=== PATIENT | female | born 1940 | race Caucasian/White ===

== ENCOUNTER 2016-10-15 14:05 | Emergency (ER) | payer OTHER, SELFPAY ==
--- NOTE | 2016-10-15 14:38 | C.PDOC ---
History Of Present Illness Patient is a 76 y/o female, whose past medical history includes asthma, and osteoporosis, presents to the emergency department for evaluation of epigastric and right sided abdominal pain for the last 4 days. Patient states pain is "worse when she walks" and has no pain at rest. Patient also reports that she has a history of abdominal hernia for "many many years". Otherwise, denies any fever, chills, n/v/d, or urinary symptoms. pt states she is able to pass gas/ stool Time Seen by Provider: 10/15/16 14:14 Chief Complaint (Nursing): Abdominal Pain History Per: Patient History/Exam Limitations: no limitations Onset/Duration Of Symptoms: Days (4) Current Symptoms Are (Timing): Still Present Location Of Pain/Discomfort: Epigastric Radiation Of Pain To:: None Quality Of Discomfort: "Pain" Associated Symptoms: denies: Fever, Chills, Nausea, Vomiting, Diarrhea, Loss Of Appetite, Back Pain, Chest Pain, Constipation, Urinary Symptoms Exacerbating Factors: None Alleviating Factors: None Recent travel outside of the [place]: No Additional History Per: Patient Abnormal Vaginal Bleeding: No Past Medical History Reviewed: Historical Data, Nursing Documentation, Vital Signs Vital Signs: Last Vital Signs Temp 97.6 F 10/15/16 17:18 Pulse 69 10/15/16 17:18 Resp 18 10/15/16 17:18 BP 132/82 10/15/16 17:18 Pulse Ox 95 10/15/16 17:18 - Medical History PMH: Asthma, Gastritis, Hypercholesterolemia Family History: States: Unknown Family Hx - Social History Hx Alcohol Use: No Hx Substance Use: No - Immunization History Hx Tetanus Toxoid Vaccination: Yes Hx Influenza Vaccination: No Hx Pneumococcal Vaccination: Yes Review Of Systems Except As Marked, All Systems Reviewed And Found Negative. Constitutional: Negative for: Fever, Chills Gastrointestinal: Positive for: Abdominal Pain. Negative for: Nausea, Vomiting , Diarrhea, Constipation Genitourinary: Negative for: Dysuria, Frequency, Incontinence, Hematuria Musculoskeletal: Negative for: Back Pain Skin: Negative for: Rash Physical Exam - Physical Exam Appears: Non-toxic, No Acute Distress Skin: Normal Color, Warm, Dry Head: Atraumatic, Normacephalic Eye(s): bilateral: Normal Inspection Neck: Normal ROM, Supple Chest: Symmetrical Cardiovascular: Rhythm Regular, No Murmur Respiratory: Normal Breath Sounds, No Rales, No Rhonchi, No Wheezing Gastrointestinal/Abdominal: Soft, Tenderness (epigastric), No Guarding, No Rebound, Hernia (large soft hernia to lower part of abdomen) Extremity: Normal ROM Neurological/Psych: Oriented x3, Normal Speech, Normal Cognition ED Course And Treatment - Laboratory Results Result Diagrams: 10/15/16 14:53 10/15/16 14:53 O2 Sat by Pulse Oximetry: 96 (on RA) Pulse Ox Interpretation: Normal Progress Note: Blood work, urinalysis, EKG, CXR ordered and reviewed. Patient was treated with Pantoprazole. Medical Decision Making Medical Decision Making: r/o obstruction, gastritis, colitis- labs imaging pending 400:noted humerusfx on cxr- pt states she has old fx "a long time ago",. ekg nsr [address] t wave changes 500: noted mildly elevated lipase, <3x upper limit. pt abd soft no ttp. patient states she is pain free. vitals wnl. ct shows no obstruction, no e/o of pancreatitis, gallbladder pathology, and chronic hernia. pt states she feels well to go home. ambulatory without any distress. no leukocystosis. pt given strict return precautions. pt and daughter bedside verbalize understanding and agree to return immediately with any worsening Disposition - Disposition Referrals: Pierre Sandoval MD [Staff Provider] - Jan Patten MD [Staff Provider] - Disposition: HOME/ ROUTINE Disposition Time: 17:10 Condition: STABLE Additional Instructions: please follow up with your doctor/specialist. return to er with worsening s ymptoms or concerns. Prescriptions: Famotidine [Pepcid] 20 mg PO DAILY #20 tab Instructions: Acute Abdominal Pain (ED) - Clinical Impression Clinical Impression: Abdominal pain - Scribe Statement The provider has reviewed the documentation as recorded by the Aliseibhima Faulkner All medical record entries made by the Scribe were at my direction and personally dictated by me. I have reviewed the chart and agree that the record accurately reflects my personal performance of the history, physical exam, medical decision making, and the department course for this patient. I have also personally directed, reviewed, and agree with the discharge instructions and disposition.
[2016-10-15 14:58] LABS: BASO % 0.6 % (0.0-2.0); EOS # 0.2 K/uL (0.0-0.7); EOS % 3.2 % (0.0-4.0); HEMOGLOBIN 11.1 g/dL (11.0-16.0); LYMPH # 2.3 K/uL (1.0-4.3); LYMPH % 35.5 % (20.0-40.0); MEAN CELL VOLUME 90.7 fL (81.0-99.0); MEAN CORPUSCULAR HEMOGLOBIN 30.1 pg (27.0-31.0); MEAN CORPUSCULAR HGB CONC 33.2 g/dL (33.0-37.0); MEAN PLATELET VOLUME 8.9 fL (7.2-11.7); MONO # 0.4 K/uL (0.0-0.8); MONO % 6.6 % (0.0-10.0); NEUT # 3.5 K/uL (1.8-7.0); NEUT % 54.1 % (50.0-75.0); RBC 3.69 Mil/uL (3.80-5.20); RED CELL DISTRIBUTION WIDTH 14.2 % (11.5-14.5); WHITE BLOOD COUNT 6.4 K/uL (4.8-10.8)
[2016-10-15 15:06] LABS: PROTHROMBIN TIME 11.5 SECONDS (9.7-12.2)
[2016-10-15 15:08] LABS: ALBUMIN 3.6 g/dL (3.5-5.0)
[2016-10-15 15:11] LABS: ALB/GLOB RATIO 1.1 (1.0-2.1); AST/SGOT 25 U/L (14-36); BLOOD UREA NITROGEN 13 mg/dL (7-17); GFR AFRICAN-AMERICAN > 60; GFR NON-AFRICAN AMERICAN > 60
[2016-10-15 15:12] LABS: ALT/SGPT 27 U/L (9-52); CALCIUM 8.3 mg/dl (8.6-10.4); LIPASE 401 U/L (23-300)
--- NOTE | 2016-10-15 15:36 | RAD ---
HISTORY: Abdominal pain COMPARISON: No prior. FINDINGS: LUNGS: Mild venous congestion. Patchy increased markings at the left lung base with trace left pleural effusion. Right hilar prominence. PLEURA: As above. CARDIOVASCULAR: Tortuous aorta. OSSEOUS STRUCTURES: Deformity of the right proximal humerus. VISUALIZED UPPER ABDOMEN: Normal. OTHER FINDINGS: None. IMPRESSION: Mild venous congestion. Patchy increased markings at the left lung base with trace left pleural effusion. Right hilar prominence. Deformity of the right proximal humerus.
[2016-10-15 16:03] LABS: SQUAMOUS EPITHIAL < 1 /hpf (0-5); URINE BILIRUBIN NEGATIVE (NEGATIVE); URINE BLOOD NEGATIVE (NEGATIVE); URINE CLARITY Clear (Clear); URINE COLOR Yellow (YELLOW); URINE GLUCOSE (UA) NORMAL (Normal); URINE LEUKOCYTE ESTERASE NEG Leu/uL (Negative); URINE NITRATE NEGATIVE (NEGATIVE); URINE PROTEIN NEGATIVE (NEGATIVE); URINE UROBILINOGEN NORMAL mg/dL (0.2-1.0)
[2016-10-15] MEDS ORDERED: Iodixanol 320 mg/ml 150 ml Bottle IV ONE (16:07)
[2016-10-15] MEDS ORDERED: Sodium Chloride 0.9% 1,000 ML IV ONE (16:17)
[2016-10-15] MEDS ORDERED: Sodium Chloride 0.9% 1,000 ML ONE (16:23)
--- NOTE | 2016-10-15 17:04 | CT ---
PROCEDURE: CT Abdomen and Pelvis with contrast HISTORY: epigastric / right sided pain COMPARISON: None. TECHNIQUE: Contrast dose: 100 mL visipaque Radiation dose: Total exam DLP = 207 mGy-cm. This CT exam was performed using one or more of the following dose reduction techniques: Automated exposure control, adjustment of the mA and/or kV according to patient size, and/or use of iterative reconstruction technique. FINDINGS: LOWER THORAX: Trace inferolateral bibasilar pleural thickening LIVER: Unremarkable. No gross lesion or ductal dilatation. GALLBLADDER AND BILE DUCTS: Nondistended gallbladder. No dilated ducts PANCREAS: Unremarkable. No gross lesion or ductal dilatation. SPLEEN: Unremarkable. ADRENALS: Unremarkable. No mass. KIDNEYS AND URETERS: Right upper renal pole 2 cm cyst. No hydronephrosis. No solid mass. VASCULATURE: Unremarkable. No aortic aneurysm. BOWEL: . No obstruction. No gross mural thickening. Ventrolateral small bowel containing hernia and large amount of fat. No associated bowel obstruction. This begins at the approximate left superior hip joint level inferior to this is a right groin hernia containing small bowel loops - -no associated destruction here either APPENDIX: Not visualized. No pericecal inflammatory changes PERITONEUM: Unremarkable. No free fluid. No free air. LYMPH NODES: Unremarkable. No enlarged lymph nodes. BLADDER: Unremarkable. REPRODUCTIVE: Unremarkable. BONES: Multiple mild moderate compression deformities without gross retropulsion of ossific fragments into the spinal canal T12 and L1 most notable OTHER FINDINGS: Distended stomach mottled material no mechanical obstruction. No gross antral or duodenal mural thickening seen. Delayed gastric emptying-possible IMPRESSION: Lateral small bowel containing hernia is. No associated obstruction. Distended stomach with mottled food inferred contents. Distal obstruction or stricture. Possible delayed gastric emptying. Correlate clinically Redundant colon. No diverticulitis seen. Appendix not visualized. No pericecal inflammatory changes 2 cm right upper renal pole cyst. Multiple compression vertebral body deformities as above -probably chronic -no retropulsed ossific fragments into the canal suggested
[2016-10-15 17:19] VITALS: BP 132/82; PULSE 69; RESP 18; TEMP 97.6
[2016-10-16 00:01] VITALS: O2SAT 96
--- NOTE | 2016-10-16 12:14 | CARD ---
APPROVED REPORT EKG Measurement Heart [id number] <Conclusion> Normal sinus rhythm Normal ECG
== END 2016-10-15 17:28 | disposition home or self-care (01) ==
LOC: C.ER 14:05
DX: R10.13 Epigastric pain (principal)
CPT/HCPCS: 71010; 74177; 80053; 81001; 83690; 84484; 85025; 85610; 85730; 93005; 96361; 96374; 99285; C9113; J7040; Q9965

== ENCOUNTER 2017-12-11 10:59 | Inpatient (IN) | payer MEDICAID, OTHER ==
[2017-12-11] MEDS ORDERED: Sodium Chloride 0.9% 500 ML IV ONE (11:31)
[2017-12-11] MEDS ORDERED: Sodium Chloride 0.9% 1,000 ML ONE ×2 (11:50→18:32)
[2017-12-11] MEDS ORDERED: Iohexol 240 (50 ml) PO STA (11:50)
--- NOTE | 2017-12-11 11:51 | C.PDOC ---
History Of Present Illness 77 y/o female with history of bilateral hernias (she states worse on left) presents to ED with c/o bilateral lower quadrant abdominal pain (R>>L) for months and worsening for several days. Patient admits to nausea. She denies fever/chills, dysuria, hematuria, diarrhea, vomiting, fever. Time Seen by Provider: 12/11/17 11:06 Chief Complaint (Nursing): Abdominal Pain History Per: Patient History/Exam Limitations: no limitations Onset/Duration Of Symptoms: Days Current Symptoms Are (Timing): Still Present Severity: Moderate Location Of Pain/Discomfort: RLQ, LLQ Quality Of Discomfort: "Pain" Associated Symptoms: Nausea. denies: Vomiting Past Medical History Reviewed: Historical Data, Nursing Documentation, Vital Signs Vital Signs: Last Vital Signs Temp 98.7 F 12/11/17 18:23 Pulse 92 H 12/11/17 18:23 Resp 16 12/11/17 18:23 BP 167/91 H 12/11/17 18:23 Pulse Ox 95 12/11/17 18:23 - Medical History PMH: Asthma, Gastritis, Hypercholesterolemia, Osteoporosis Surgical History: No Surg Hx Family History: States: No Known Family Hx - Social History Hx Alcohol Use: No Hx Substance Use: No - Immunization History Hx Tetanus Toxoid Vaccination: Yes Hx Influenza Vaccination: No Hx Pneumococcal Vaccination: Yes Review Of Systems Constitutional: Negative for: Fever, Chills Gastrointestinal: Positive for: Nausea, Abdominal Pain. Negative for: Vomiting , Diarrhea Genitourinary: Negative for: Dysuria, Hematuria Musculoskeletal: Negative for: Back Pain Skin: Negative for: Rash Physical Exam - Physical Exam Appears: Well, Non-toxic, Other (In moderate pain) Skin: Warm, Dry, No Rash Head: Normacephalic Eye(s): bilateral: Normal Inspection Oral Mucosa: Moist Neck: Supple Cardiovascular: Rhythm Regular Respiratory: Normal Breath Sounds, No Rales, No Rhonchi, No Wheezing Gastrointestinal/Abdominal: Soft, Tenderness ((+) B/L lower quadrant TTP, large pannus, right inguinal hernia partially reducable but TTP, left ventral hernia, hard to tough, (+) TTP), No Guarding, No Hernia, Other (obese abdomen) Back: Normal Inspection, No CVA Tenderness Neurological/Psych: Oriented x3, Normal Speech, Normal Cognition ED Course And Treatment - Laboratory Results Result Diagrams: 12/11/17 12:05 12/11/17 12:05 ECG: Interpreted By Me, Viewed By Me (NSR 85 bpm, left axis deviation, no acute ST/T wave changes) O2 Sat by Pulse Oximetry: 97 (RA) Pulse Ox Interpretation: Normal - CT Scan/US ct abd/pelvis Other Rad Studies (CT/US): Read By Radiologist, Radiology Report Reviewed CT/US Interpretation: Accession No. : [id number]. Patient Name / ID : LETICIA ROBERTSON / [id number]. Exam Date : 12/11/2017 14:34:27 ( Approved ). Study Comment : Sex / Age : F / 77Y. Creator : Tatiana Iqbal. Dictator : Bia Resendez MD. Utility Plant Operative : Curb Setter : Bia Resendez MD. Approver2 : Report Date : 12/11/2017 14:49:12. My Comment : . PROCEDURE: CT Abdomen and Pelvis with oral and IV contrast. HISTORY: llq pain, r/o diverticulitis vs hernia. COMPARISON: CT abdomen and pelvis performed . TECHNIQUE: Contiguous axial images of the abdomen and pelvis. Oral and IV contrast was administered. Coronal and Sagittal reformats generated and reviewed. Contrast dose: 100 mL Visipaque IV. Radiation dose: Total exam DLP = 237.99 mGy-cm. This CT exam was performed using one or more of the following dose reduction techniques: Automated exposure control, adjustment of the mA and/ or kV according to patient size, and/or use of iterative reconstruction technique. FINDINGS: LOWER THORAX: No visible consolidation, pleural effusion , or pneumothorax. LIVER: Unremarkable. GALLBLADDER AND BILE DUCTS: Unremarkable. PANCREAS: Unremarkable. SPLEEN: Unremarkable. ADRENALS: Unremarkable. KIDNEYS AND URETERS: The kidneys enhance symmetrically. No hydronephrosis or obstructing renal calculus. 14 mm right upper pole cyst. BLADDER: The urinary bladder appears unremarkable. REPRODUCTIVE: Uterus is absent, consistent with hysterectomy. APPENDIX: The appendix appears within normal limits of caliber. No secondary signs of acute appendicitis. BOWEL: The stomach is nondistended. Large right bowel containing inguinal hernia without evidence of obstruction. Please note the appendix also enters into the hernia sac. Large left ventral lateral bowel containing hernia without evidence of obstruction. PERITONEUM: No significant free fluid. No definite free air. LYMPH NODES: No bulky lymphadenopathy identified. VASCULATURE: No aortic aneurysm. BONES: Osseous demineralization. Multilevel degenerative changes. Multilevel chronic compression fracture deformities. OTHER FINDINGS: None. IMPRESSION: Large right bowel containing inguinal hernia without evidence of obstruction. Please note the appendix also enters into the hernia sac. Large left ventral lateral bowel containing hernia without evidence of obstruction. Additional findings as above. Progress Note: Blood work, UA, CT scan abd/pelvis ordered and reviewed. Patient given IV NS bolus, IV morphine. 3:25pm- Discussed patient with surgery team, they recommend medicine admission with surgery clinic. Disposition - Disposition Disposition: HOSPITALIZED - Scribe Statement The provider has reviewed the documentation as recorded by the [facility] All medical record entries made by the [facility] were at my direction and personally dictated by me. I have reviewed the chart and agree that the record accurately reflects my personal performance of the history, physical exam, medical decision making, and the department course for this patient. I have also personally directed, reviewed, and agree with the discharge instructions and disposition.
[2017-12-11 12:10] LABS: BASO % 0.5 % (0.0-2.0); EOS # 0.1 K/uL (0.0-0.7); LYMPH # 1.3 K/uL (1.0-4.3); LYMPH % 12.9 % (20.0-40.0); MEAN CORPUSCULAR HEMOGLOBIN 31.6 pg (27.0-31.0); MEAN CORPUSCULAR HGB CONC 33.3 g/dL (33.0-37.0); MEAN PLATELET VOLUME 9.2 fL (7.2-11.7); MONO # 0.7 K/uL (0.0-0.8); MONO % 7.1 % (0.0-10.0); NEUT # 7.6 K/uL (1.8-7.0); NEUT % 78.5 % (50.0-75.0); RBC 4.13 Mil/uL (3.80-5.20)
[2017-12-11 12:11] LABS: HEMOGLOBIN 13.1 g/dL (11.0-16.0); MEAN CELL VOLUME 95.1 fL (81.0-99.0); WHITE BLOOD COUNT 9.7 K/uL (4.8-10.8)
[2017-12-11] MEDS ORDERED: Iohexol 240 (50 ml) ONE (12:18)
[2017-12-11 12:23] LABS: ALB/GLOB RATIO 1.3 (1.0-2.1); ALBUMIN 4.3 g/dL (3.5-5.0); ALT/SGPT 35 U/L (9-52); AST/SGOT 27 U/L (14-36); BLOOD UREA NITROGEN 12 mg/dL (7-17); CALCIUM 9.1 mg/dl (8.6-10.4); GFR NON-AFRICAN AMERICAN > 60; LIPASE 175 U/L (23-300)
[2017-12-11 12:32] LABS: SQUAMOUS EPITHIAL 7 /hpf (0-5); URINE BILIRUBIN NEGATIVE (NEGATIVE); URINE BLOOD NEGATIVE (NEGATIVE); URINE CLARITY Clear (Clear); URINE COLOR Yellow (YELLOW); URINE GLUCOSE (UA) NORMAL (Normal); URINE LEUKOCYTE ESTERASE NEG Leu/uL (Negative); URINE PROTEIN NEGATIVE (NEGATIVE); URINE UROBILINOGEN NORMAL mg/dL (0.2-1.0)
[2017-12-11] MEDS ORDERED: Iodixanol 320 MG/ML 100 ML BOTTLE IV ONE (13:55)
--- NOTE | 2017-12-11 15:16 | CT ---
PROCEDURE: CT Abdomen and Pelvis with oral and IV contrast. HISTORY: llq pain, r/o diverticulitis vs hernia COMPARISON: CT abdomen and pelvis performed 10/15/16 TECHNIQUE: Contiguous axial images of the abdomen and pelvis. Oral and IV contrast was administered. Coronal and Sagittal reformats generated and reviewed. Contrast dose: 100 mL Visipaque IV Radiation dose: Total exam DLP = 237.99 mGy-cm. This CT exam was performed using one or more of the following dose reduction techniques: Automated exposure control, adjustment of the mA and/or kV according to patient size, and/or use of iterative reconstruction technique. FINDINGS: LOWER THORAX: No visible consolidation, pleural effusion, or pneumothorax. LIVER: Unremarkable. GALLBLADDER AND BILE DUCTS: Unremarkable. PANCREAS: Unremarkable. SPLEEN: Unremarkable. ADRENALS: Unremarkable. KIDNEYS AND URETERS: The kidneys enhance symmetrically. No hydronephrosis or obstructing renal calculus. 14 mm right upper pole cyst. BLADDER: The urinary bladder appears unremarkable. REPRODUCTIVE: Uterus is absent, consistent with hysterectomy. APPENDIX: The appendix appears within normal limits of caliber. No secondary signs of acute appendicitis. BOWEL: The stomach is nondistended. Large right bowel containing inguinal hernia without evidence of obstruction. Please note the appendix also enters into the hernia sac. Large left ventral lateral bowel containing hernia without evidence of obstruction. PERITONEUM: No significant free fluid. No definite free air. LYMPH NODES: No bulky lymphadenopathy identified. VASCULATURE: No aortic aneurysm. BONES: Osseous demineralization. Multilevel degenerative changes. Multilevel chronic compression fracture deformities. OTHER FINDINGS: None. IMPRESSION: Large right bowel containing inguinal hernia without evidence of obstruction. Please note the appendix also enters into the hernia sac. Large left ventral lateral bowel containing hernia without evidence of obstruction. Additional findings as above.
--- NOTE | 2017-12-11 16:36 | CP.PCM.HP ---
<Katie Wilkins - Last Filed: 12/11/17 17:14> History of Present Illness - History of Present Illness History of Present Illness: POA: Daughter - Laurie Whitfield # [phone] CC: "abdominal pain" HPI: 77 year old female with past medical history of Asthma, Gastritis, H. Pylori (2015), osteoporosis presents to the hospital for abdominal pain. Patient states the pain started about 1 week ago and has been getting progressively worse about 3 days ago. She states yesterday was the worse it has ever been but she was not able to get transportation to come to the hospital. Patient states the pain is located in the right lower quadrant and radiates to the middle of her abdomen. Patient states the pain feels like a burning/sharp pain that is 10/10. She states when she leans forward the pain is worse. Patient states after receiving pain medication in the ER her pain is now a 5-6/10. She states she has felt a bit nauseated due to the pain and has not been able to eat today. She currently denies chest pain, shortness of breath, difficulty breathing, palpitations, vomiting, diarrhea, constipation, fever or chills. PMD: none (has previously seen Dr. Kuo in the past but not in the past 3 years) Past Medical History: Asthma, Gastritis, H. Pylori (2015), osteoporosis Past Surgical History: Endoscopy x2; uterine prolapse Medications: patient's daughter to bring medications to hospital Allergies: NKDA Family History: denies Social History: Lives with daughter; originally from [place], denies alcohol, smoking or illicit drug use. Present on Admission - Present on Admission Any Indicators Present on Admission: No Review of Systems - Constitutional Constitutional: absent: Chills, Fever - Cardiovascular Cardiovascular: absent: Chest Pain, Dyspnea, Edema, Leg Edema, Palpitations, Pedal Edema - Respiratory Respiratory: absent: Cough, Dyspnea, Wheezing, Excessive Mucous Production - Gastrointestinal Gastrointestinal: Abdominal Pain, Nausea. absent: Constipation, Diarrhea, Vomiting - Genitourinary Genitourinary: absent: Dysuria - Musculoskeletal Musculoskeletal: Arthralgias. absent: Numbness, Tingling - Neurological Neurological: absent: Dizziness, Headaches, Paresthesias, Tingling Past Patient History - Past Social History Smoking Status: Never Smoked - CARDIAC Hx Hypercholesterolemia: Yes - PULMONARY Hx Asthma: Yes - HEENT Other/Comment: Caries - MUSCULOSKELETAL/RHEUMATOLOGICAL Hx Osteoporosis: Yes - GASTROINTESTINAL Hx Gastritis: Yes - PSYCHIATRIC Hx Substance Use: No - SURGICAL HISTORY Hx Surgeries: No - ANESTHESIA Hx Anesthesia: No Meds Home Medications: Home Medication List Medication Instructions Recorded Confirmed Type Albuterol HFA [Ventolin HFA 90 1 puff IH [id number] #120 puff 12/12/17 Rx mcg/actuation (8 g)] Calcium Carbonate/Vitamin D 1 tab PO DAILY #30 tab 12/12/17 Rx [Oyster Shell Calcium/Vitamin D 250 MG-125 Iu] Fluticasone Propionate [Flovent 0.11 mg IH Q12 #50 ml 12/12/17 Rx Hfa] Omeprazole 20 mg PO BID #60 cap 12/12/17 Rx Simvastatin 10 mg PO HS #30 tablet 12/12/17 Rx Allergies/Adverse Reactions: Allergies Allergy/AdvReac Type Severity Reaction Status Date / Time No Known Allergies Allergy Verified 12/11/17 17:35 Physical Exam - Constitutional Appears: Non-toxic, In Acute Distress - Head Exam Head Exam: ATRAUMATIC, NORMAL INSPECTION - Eye Exam Eye Exam: EOMI, Normal appearance, PERRL. absent: Conjunctival injection Pupil Exam: NORMAL ACCOMODATION - ENT Exam ENT Exam: Mucous Membranes Dry Additional comments: poor dentition - Neck Exam Neck exam: Negative for: Lymphadenopathy, Tenderness, Thyromegaly - Respiratory Exam Respiratory Exam: Wheezes (bilateral upper and lower lungs), NORMAL BREATHING PATTERN. absent: Accessory Muscle Use, Respiratory Distress - Cardiovascular Exam Cardiovascular Exam: REGULAR RHYTHM, RRR, +S1, +S2. absent: Diastolic murmur, JVD, Systolic Murmur - GI/Abdominal Exam GI & Abdominal Exam: Normal Bowel Sounds, Soft, Tenderness (RLQ tenderness). absent: Distended, Firm, Guarding, Rigid - Extremities Exam Extremities exam: Positive for: normal capillary refill, normal inspection. Negative for: joint swelling, pedal edema, tenderness - Neurological Exam Neurological exam: Alert, CN II-XII Intact, Oriented x3 - Expanded Neurological Exam Expanded Patient oriented to: person Sensory exam: Lower Extremity Light Touch: Normal, Upper Extremity Light Touch: Normal Neuro motor strength exam: Left Upper Extremity: 5, Right Upper Extremity: 5, Left Lower Extremity: 4, Right Lower Extremity: 4 Coma Scale Eye Opening: SPONTANEOUS Coma Scale Motor Response: OBEYS COMMANDS Coma Scale Verbal: Oriented Coma Scale Total: 15 - Psychiatric Exam Psychiatric exam: Normal Affect, Normal Mood - Skin Skin Exam: Normal Color, Warm Results - Vital Signs Recent Vital Signs: Last Vital Signs Temp 97.8 F 12/11/17 14:57 Pulse 88 12/11/17 14:57 Resp 16 12/11/17 14:57 BP 167/92 H 12/11/17 14:57 Pulse Ox 97 12/11/17 15:55 - Labs Result Diagrams: 12/11/17 12:05 12/11/17 12:05 Labs: Laboratory Results - last 24 hr 12/11/17 12/11/17 12/11/17 12:05 12:05 12:05 WBC 9.7 D RBC 4.13 Hgb 13.1 D Hct 39.3 MCV 95.1 D MCH 31.6 H MCHC 33.3 RDW 15.0 H Plt Count 286 MPV 9.2 Neut % (Auto) 78.5 H Lymph % (Auto) 12.9 L [place] % (Auto) 7.1 Eos % (Auto) 1.0 Baso % (Auto) 0.5 Neut # (Auto) 7.6 H Lymph # (Auto) 1.3 [place] # (Auto) 0.7 Eos # (Auto) 0.1 Baso # (Auto) 0.0 Sodium 140 Potassium 4.1 Chloride 104 Carbon Dioxide 28 Anion Gap 12 BUN 12 Creatinine 0.5 L Est GFR ( Amer) > 60 Est GFR (Non-Af Amer) > 60 Random Glucose 100 Calcium 9.1 Total Bilirubin 0.5 AST 27 ALT 35 Alkaline Phosphatase 69 Total Protein 7.5 Albumin 4.3 Globulin 3.2 Albumin/Globulin Ratio 1.3 Lipase 175 Urine Color Yellow Urine Clarity Clear Urine pH 8.0 Ur Specific [place] 1.010 Urine Protein Negative Urine Glucose (UA) Normal Urine Ketones Negative Urine Blood Negative Urine Nitrate Negative Urine Bilirubin Negative Urine Urobilinogen Normal Ur Leukocyte Esterase Neg Urine WBC (Auto) < 1 Urine RBC (Auto) < 1 Ur Squamous Epith Cells 7 H Assessment & Plan - Assessment and Plan (Free Text) Assessment: Abdominal Pain - secondary to right inguinal hernia - Images: * Abdominal/Pelvis CT: Large right bowel containing inguinal hernia without evidence of obstruction. Please note the appendix also enters into the hernia sac. Large left ventral lateral bowel containing hernia without evidence of obstruction. - General Surgery: Dr. Whitman --> help appreciated - NPO - NS @50cc/hr - Medical Clearance * f/u EKG; Coagulation blood work * Chest Xray: Mild pulmonary venous congestion. Mild upper lobe atelectasis. Right hilar prominence. Emphysematous changes. - Medications * Morphine 1mg q4prn for moderate pain * Morphine 2mg q4prn for severe pain * Zofran 4mg IV q6prn for nausea History of Asthma - wheezing bilateral upper and lower lungs - Images: * Chest Xray: Mild pulmonary venous congestion. Mild upper lobe atelectasis. Right hilar prominence. Emphysematous changes. - f/u Strep pneumo, Legionella, and Mycoplasm pneumonia - Medications: * Duonebs q6prn for shortness of breath * Zosyn 3.375IV q6h * possibly will start steroids 12/12/17 Elevated Blood Pressure - likely secondary to abdominal pain - Continue to monitor blood pressure History of Gastritis - Please refrain from using NSAIDs - Protonix 40mg IV daily History of Lipid Disorder - f/u Lipid Panel History of Impaired Glucose Tolerance - f/u hA1c Prophylaxis - NPO/NS @50cc/hr - Protonix 40mg IV daily - SCDs - Fall Precaution until cleared by PT - PT/OT Case discussed with Dr. Cherelle Wilkins PGY-2 <Esther Villarreal V - Last Filed: 12/15/17 13:54> Results - Vital Signs Recent Vital Signs: Last Vital Signs Temp 98.2 F 12/12/17 16:34 Pulse 86 12/12/17 16:34 Resp 20 12/12/17 16:34 BP 118/65 12/12/17 16:34 Pulse Ox 90 L 12/12/17 16:34 - Labs Result Diagrams: 12/12/17 08:13 12/12/17 08:13 Labs: Laboratory Results - last 24 hr 12/12/17 09:35 Ur Strep pneumoniae Ag Not detected Attending/Attestation - Attestation I have personally seen and examined this patient.: Yes I have fully participated in the care of the patient.: Yes I have reviewed all pertinent clinical information: Yes Notes (Text): This is a late computer entry for 12/14/2017 Patient seen, examined, case discussed with manager medical. Patient seen in [facility] bed 7 a in the emergency room with daughter at bedside assisting translation. Patient is up [place] descent with medical history including asthma, gastritis, lipid disorder, prediabetes comes in for acute onset of abdominal pain which is mildly improved with morphine at bedside. Noted on my lung exam to be having wheezing in her upper and lower quadrants. Patient's daughter reports that they do borrow pump from a friend and uses a multiple times. Discussed admitting orders at time of admission with resident. Patient is pending at general surgery evaluation for hernia. On my exam she's belly is soft nondistended no apparent hernia appreciated from minor stay was reduced prior to my arrival. Assessment and plan 1) Abdominal Pain secondary to right inguinal hernia * Images: Abdominal/Pelvis CT: Large right bowel containing inguinal hernia without evidence of obstruction. Please note the appendix also enters into the hernia sac. Large left ventral lateral bowel containing hernia without evidence of obstruction. * General Surgery: Dr. Whitman --> help appreciated * NPO * NS @50cc/hr * f/u EKG; Coagulation blood work * Chest Xray: Mild pulmonary venous congestion. Mild upper lobe atelectasis. Right hilar prominence. Emphysematous changes. - Medications * Morphine 1mg q4prn for moderate pain * Morphine 2mg q4prn for severe pain * Zofran 4mg IV q6prn for nausea 2) History of Asthma Assessment and plan * wheezing bilateral upper and lower lungs * Images: * Chest Xray: Mild pulmonary venous congestion. Mild upper lobe atelectasis. Right hilar prominence. Emphysematous changes. * f/u Strep pneumo, Legionella, and Mycoplasm pneumonia - Medications: * Duonebs q6prn for shortness of breath * Zosyn 3.375IV q6h * possibly will start steroids 12/12/17 3) Elevated Blood Pressure Assessment and plan - likely secondary to abdominal pain - Continue to monitor blood pressure 4) History of Gastritis Assessment and plan - Please refrain from using NSAIDs - Protonix 40mg IV daily 5) History of Lipid Disorder Assessment and plan - f/u Lipid Panel 6) History of Impaired Glucose Tolerance Assessment and plan - f/u hA1c 7) Prophylaxis - NPO/NS @50cc/hr - Protonix 40mg IV daily - SCDs - Fall Precaution until cleared by PT - PT/OT
[2017-12-11] MEDS ORDERED: Albuterol-Ipratrop 3 mg / 0.5 (3 ml) UD INH STA (16:43)
[2017-12-11] MEDS ORDERED: Albuterol-Ipratrop 3 mg / 0.5 (3 ml) UD INH PRN (16:43)
--- NOTE | 2017-12-11 16:44 | RAD ---
Date of service: 12/11/17 Chest, one view Indication: Shortness of breath Comparison: Chest x-ray performed 10/15/16 Findings: Borderline cardiomegaly. Increased lucencies especially within the bilateral upper lung st compatible with underlying emphysema. Mild pulmonary venous congestion. Mild upper lobe atelectasis. Right hilar prominence. No significant pleural effusion. No pneumothorax. Please note that chest x-ray has limited sensitivity for the detection of pulmonary masses. Eventration of the right hemidiaphragm. Degenerative changes of the spine. Partially imaged deformity of the right proximal humerus. Impression: Borderline cardiomegaly. Mild pulmonary venous congestion. Mild upper lobe atelectasis. Right hilar prominence. Emphysematous changes.
[2017-12-11] MEDS ORDERED: Albuterol-Ipratrop 3 mg / 0.5 (3 ml) UD ONE (16:53)
[2017-12-11] MEDS ORDERED: Sodium Chloride 0.9% 1,000 ML IV SCH (17:00)
[2017-12-11] MEDS ORDERED: Piperacillin/Tazobact 3.375 gm 100 ML IVPB ONE (18:31)
[2017-12-11] MEDS: Piperacill/Tazo 3.375gm in Dex 3.375 GM/50 ML BAG IVPB SCH ×2 (18:38→22:20)
[2017-12-11 20:16] LABS: INR 1.1; PROTHROMBIN TIME 11.8 SECONDS (9.7-12.2)
--- NOTE | 2017-12-11 23:02 | CP.PCM.CON ---
History of Present Illness - History of Present Illness History of Present Illness: General surgery consult note for Dr. Nina Zabala, PGY-2 Pt S & E at bedside at 2250. 77F w/PMH sig for gastritis consulted for RLQ abdominal pain x 1 week. Pt reports pain increasing in intensity, radiates to midline, is burning/sharp, severe. Aggravated by leaning forward, ambulating. Alleviated by pain medication. Admits to nausea (one day [employer]), decreased appetite, subjective fevers & chills, one episode of diarrhea, burping. Denies constipation, dysuria , SOB, palpitations, numbness or tingling of extremities, weakness, flatus. In ED, CT ab/pelvis w/large Right bowl containing inguinal hernia w/o obstruction. [place] left ventral lateral bowel containing hernia w/o obstruction. Afebrile, no leukocytosis. Lipase 175. PMH: asthma (non compliant with medication), Gastritis, H pylori, osteoporosis, hernias, HTN PSH: uterine prolapse surgery All: NKDA SH; Denies ETOH, tobacco or illicit drug use FH: Non contributory Review of Systems - Review of Systems All systems: reviewed and no additional remarkable complaints except - Constitutional Constitutional: Chills, Fever (subjective). absent: Headache - EENT Ears: absent: Dizziness - Cardiovascular Cardiovascular: absent: Chest Pain - Gastrointestinal Gastrointestinal: Abdominal Pain, Diarrhea (one episode), Nausea (once). absent : Constipation, Vomiting - Genitourinary Genitourinary: absent: Change in Urinary Stream, Dysuria - Musculoskeletal Musculoskeletal: absent: Back Pain, Numbness, Tingling - Neurological Neurological: absent: Weakness - Psychiatric Psychiatric: Change in Appetite (decreased) Past Patient History - Past Medical History & Family History Past Medical History?: Yes - Past Social History Smoking Status: Never Smoked - CARDIAC Hx Hypercholesterolemia: Yes - PULMONARY Hx Asthma: Yes - HEENT Other/Comment: Caries - MUSCULOSKELETAL/RHEUMATOLOGICAL Hx Falls: No Hx Osteoporosis: Yes - GASTROINTESTINAL Hx Gastritis: Yes - PSYCHIATRIC Hx Substance Use: No - SURGICAL HISTORY Hx Surgeries: No Other/Comment: bladder prolapse surgery - ANESTHESIA Hx Anesthesia: Yes Hx Anesthesia Reactions: No Meds Allergies/Adverse Reactions: Allergies Allergy/AdvReac Type Severity Reaction Status Date / Time No Known Allergies Allergy Verified 12/11/17 17:35 - Medications Medications: Current Medications Albuterol/Ipratropium (Duoneb 3 Mg/0.5 Mg (3 Ml) Ud) 3 ml INH RQ6 PRN PRN Reason: Shortness of Breath Sodium Chloride (Sodium Chloride 0.9%) 1,000 mls @ 50 mls/hr IV .Q20H [facility] Last Admin: 12/11/17 18:37 Dose: 50 mls/hr Piperacillin Sod/Tazobactam Sod (Zosyn 3.375 Gm Iv Premix) 3.375 gm in 50 mls @ 100 mls/hr IVPB Q6H [facility] PRN Reason: Protocol Last Admin: 12/11/17 22:20 Dose: 100 mls/hr Morphine Sulfate (Morphine) 2 mg IV Q4 PRN PRN Reason: Pain, severe (8-10) Last Admin: 12/11/17 20:07 Dose: 2 mg Morphine Sulfate (Morphine) 1 mg IV Q4 PRN PRN Reason: Pain, moderate (4-7) Ondansetron HCl (Zofran Inj) 4 mg IVP Q6 PRN PRN Reason: Nausea/Vomiting Pantoprazole Sodium (Protonix Inj) 40 mg IVP DAILY [facility] Last Admin: 12/11/17 18:37 Dose: 40 mg Pneumococcal Polyvalent Vaccine (Pneumovax 23 Vaccine) 0.5 ml IM .ONCE ONE Stop: 12/13/17 10:01 Physical Exam - Constitutional Appears: Non-toxic, No Acute Distress - Head Exam Head Exam: ATRAUMATIC, NORMAL INSPECTION, NORMOCEPHALIC - Eye Exam Eye Exam: EOMI, Normal appearance - ENT Exam ENT Exam: Mucous Membranes Moist, Normal Exam - Neck Exam Neck exam: Positive for: Full Rom, Normal Inspection - Respiratory Exam Respiratory Exam: Wheezes (diffuse), NORMAL BREATHING PATTERN. absent: Respiratory Distress - Cardiovascular Exam Cardiovascular Exam: REGULAR RHYTHM, +S1, +S2 - GI/Abdominal Exam GI & Abdominal Exam: Hernia (RLQ, LLQ, reducible), Soft. absent: Distended, Tenderness - Extremities Exam Extremities exam: Positive for: normal inspection. Negative for: pedal edema - Neurological Exam Neurological exam: Alert, Oriented x3 - Psychiatric Exam Psychiatric exam: Normal Affect, Normal Mood - Skin Skin Exam: Dry, Intact, Normal Color, Warm Results - Vital Signs Recent Vital Signs: Last Vital Signs Temp 98.7 F 12/11/17 18:23 Pulse 92 H 12/11/17 18:23 Resp 16 12/11/17 18:23 BP 167/91 H 12/11/17 18:23 Pulse Ox 97 12/11/17 18:46 - Labs Result Diagrams: 12/11/17 12:05 12/11/17 12:05 Labs: Laboratory Results - last 24 hr 12/11/17 12/11/17 12/11/17 12:05 12:05 12:05 WBC 9.7 D RBC 4.13 Hgb 13.1 D Hct 39.3 MCV 95.1 D MCH 31.6 H MCHC 33.3 RDW 15.0 H Plt Count 286 MPV 9.2 Neut % (Auto) 78.5 H Lymph % (Auto) 12.9 L [place] % (Auto) 7.1 Eos % (Auto) 1.0 Baso % (Auto) 0.5 Neut # (Auto) 7.6 H Lymph # (Auto) 1.3 [place] # (Auto) 0.7 Eos # (Auto) 0.1 Baso # (Auto) 0.0 PT INR APTT Sodium 140 Potassium 4.1 Chloride 104 Carbon Dioxide 28 Anion Gap 12 BUN 12 Creatinine 0.5 L Est GFR ( Amer) > 60 Est GFR (Non-Af Amer) > 60 Random Glucose 100 Calcium 9.1 Total Bilirubin 0.5 AST 27 ALT 35 Alkaline Phosphatase 69 Total Protein 7.5 Albumin 4.3 Globulin 3.2 Albumin/Globulin Ratio 1.3 Lipase 175 Urine Color Yellow Urine Clarity Clear Urine pH 8.0 Ur Specific [place] 1.010 Urine Protein Negative Urine Glucose (UA) Normal Urine Ketones Negative Urine Blood Negative Urine Nitrate Negative Urine Bilirubin Negative Urine Urobilinogen Normal Ur Leukocyte Esterase Neg Urine WBC (Auto) < 1 Urine RBC (Auto) < 1 Ur Squamous Epith Cells 7 H 12/11/17 20:00 WBC RBC Hgb Hct MCV MCH MCHC RDW Plt Count MPV Neut % (Auto) Lymph % (Auto) [place] % (Auto) Eos % (Auto) Baso % (Auto) Neut # (Auto) Lymph # (Auto) [place] # (Auto) Eos # (Auto) Baso # (Auto) PT 11.8 INR 1.1 APTT 33 Sodium Potassium Chloride Carbon Dioxide Anion Gap BUN Creatinine Est GFR ( Amer) Est GFR (Non-Af Amer) Random Glucose Calcium Total Bilirubin AST ALT Alkaline Phosphatase Total Protein Albumin Globulin Albumin/Globulin Ratio Lipase Urine Color Urine Clarity Urine pH Ur Specific [place] Urine Protein Urine Glucose (UA) Urine Ketones Urine Blood Urine Nitrate Urine Bilirubin Urine Urobilinogen Ur Leukocyte Esterase Urine WBC (Auto) Urine RBC (Auto) Ur Squamous Epith Cells Assessment & Plan - Assessment and Plan (Free Text) Assessment: 77F w/RLQ abdominal pain in setting of reducible RIH Plan: Pain control Ok to for diet No surgical intervention at this time, hernias reducible Pt will need medical optimization prior to surgical intervention DW Dr. J Carlos Zabala, PGY-2 - Date & Time Date: 12/11/17 Time: 23:05
[2017-12-12 01:33] VITALS: RESP 20
[2017-12-12] MEDS: Piperacill/Tazo 3.375gm in Dex 3.375 GM/50 ML BAG IVPB SCH ×3 (04:37→17:39)
[2017-12-12 08:32] LABS: BASO % 0.5 % (0.0-2.0); EOS # 0.2 K/uL (0.0-0.7); EOS % 2.5 % (0.0-4.0); HEMOGLOBIN 11.3 g/dL (11.0-16.0); LYMPH # 2.1 K/uL (1.0-4.3); LYMPH % 29.1 % (20.0-40.0); MEAN CELL VOLUME 93.9 fL (81.0-99.0); MONO # 0.8 K/uL (0.0-0.8); MONO % 10.8 % (0.0-10.0); NEUT # 4.1 K/uL (1.8-7.0); NEUT % 57.1 % (50.0-75.0); NRBC % 0.1 % (0.0-2.0); RBC 3.53 Mil/uL (3.80-5.20); RED CELL DISTRIBUTION WIDTH 14.9 % (11.5-14.5); WHITE BLOOD COUNT 7.2 K/uL (4.8-10.8)
[2017-12-12 08:44] LABS: ALB/GLOB RATIO 1.4 (1.0-2.1); ALBUMIN 3.7 g/dL (3.5-5.0); ALT/SGPT 34 U/L (9-52); AST/SGOT 22 U/L (14-36); BLOOD UREA NITROGEN 8 mg/dL (7-17); GFR NON-AFRICAN AMERICAN > 60; HDL CHOLESTEROL 60 mg/dL (30-70)
[2017-12-12 08:48] LABS: LDL CHOLESTEROL 139 mg/dL (0-129)
[2017-12-12 09:04] LABS: HEPATITIS B SURFACE AG Negative (NEGATIVE)
[2017-12-12 09:10] LABS: HEPATITIS A IGM NEGATIVE (NEGATIVE); HEPATITIS B CORE AB NEGATIVE (NEGATIVE)
[2017-12-12 09:22] LABS: HEPATITIS C ANTIBODY NEGATIVE (NEGATIVE)
[2017-12-12] MEDS ORDERED: Potassium Chloride 20 mEq ER Tab PO ONE (10:00)
--- NOTE | 2017-12-12 11:03 | CP.PCM.PN ---
Subjective - Date & Time of Evaluation Date of Evaluation: 12/12/17 Time of Evaluation: 11:00 - Subjective Subjective: Surgery Pt seen and examined. No acute events. Denies fever, nausea, vomiting. Pain controlled. Hernia reducible. Objective - Vital Signs/Intake and Output Vital Signs (last 24 hours): Temp Pulse Resp BP Pulse Ox 98 F 63 20 145/73 95 12/12/17 07:58 12/12/17 07:58 12/12/17 07:58 12/12/17 07:58 12/12/17 07:58 Intake and Output: 12/12/17 12/12/17 06:59 18:59 Intake Total 400 Balance 400 - Medications Medications: Current Medications Albuterol/Ipratropium (Duoneb 3 Mg/0.5 Mg (3 Ml) Ud) 3 ml INH RQ6 PRN PRN Reason: Shortness of Breath Piperacillin Sod/Tazobactam Sod (Zosyn 3.375 Gm Iv Premix) 3.375 gm in 50 mls @ 100 mls/hr IVPB Q6H [facility] PRN Reason: Protocol Last Admin: 12/12/17 10:00 Dose: 100 mls/hr Morphine Sulfate (Morphine) 2 mg IV Q4 PRN PRN Reason: Pain, severe (8-10) Last Admin: 12/11/17 20:07 Dose: 2 mg Morphine Sulfate (Morphine) 1 mg IV Q4 PRN PRN Reason: Pain, moderate (4-7) Ondansetron HCl (Zofran Inj) 4 mg IVP Q6 PRN PRN Reason: Nausea/Vomiting Pantoprazole Sodium (Protonix Inj) 40 mg IVP DAILY COUNTS INCLUDE 234 BEDS AT [facility] Last Admin: 12/12/17 10:00 Dose: 40 mg Pneumococcal Polyvalent Vaccine (Pneumovax 23 Vaccine) 0.5 ml IM .ONCE ONE Stop: 12/13/17 10:01 - Labs Labs: 12/12/17 08:13 12/12/17 08:13 PT 11.8 SECONDS (9.7-12.2) 12/11/17 20:00 INR 1.1 12/11/17 20:00 APTT 33 SECONDS (21-34) 12/11/17 20:00 - Constitutional Appears: No Acute Distress - Head Exam Head Exam: ATRAUMATIC, NORMAL INSPECTION, NORMOCEPHALIC - Eye Exam Eye Exam: EOMI, Normal appearance, PERRL Pupil Exam: NORMAL ACCOMODATION, PERRL - ENT Exam ENT Exam: Mucous Membranes Moist, Normal Exam - Neck Exam Neck Exam: Full ROM, Normal Inspection. absent: Lymphadenopathy - Respiratory Exam Respiratory Exam: NORMAL BREATHING PATTERN - Cardiovascular Exam Cardiovascular Exam: REGULAR RHYTHM, +S1, +S2. absent: Murmur - GI/Abdominal Exam GI & Abdominal Exam: Soft, Tenderness, Normal Bowel Sounds. absent: Distended Additional comments: reducible b/l inguinal hernia. - Extremities Exam Extremities Exam: Full ROM - Back Exam Back Exam: NORMAL INSPECTION - Neurological Exam Neurological Exam: Alert, Awake, CN II-XII Intact, Normal Gait, Oriented x3 - Psychiatric Exam Psychiatric exam: Normal Affect, Normal Mood - Skin Skin Exam: Dry, Intact, Normal Color, Warm Assessment and Plan - Assessment and Plan (Free Text) Assessment: 77F w/RLQ abdominal pain in setting of reducible b/l IH Plan: Pain control Ok to for diet No surgical intervention at this time, hernias reducible Follow up at Dr. Whitman's office to schedule for hernia repair DW Dr. Whitman
--- NOTE | 2017-12-12 13:18 | CP.PCM.DIS ---
<MayelaMarley Y - Last Filed: 12/12/17 19:03> Provider - Provider Date of Admission: 12/11/17 15:45 Attending physician: Arturo Guzman MD Time Spent in preparation of Discharge (in minutes): 45 Diagnosis - Discharge Diagnosis (1) Bronchitis Status: Acute (2) Hernia, inguinal, right Status: Acute Hospital Course - Lab Results Lab Results: Micro Results 12/11/17 12:05 Urine Urine Culture - Final No Growth (<1,000 CFU/ML) Most Recent Lab Values WBC 7.2 K/uL (4.8-10.8) 12/12/17 08:13 RBC 3.53 Mil/uL (3.80-5.20) L 12/12/17 08:13 Hgb 11.3 g/dL (11.0-16.0) 12/12/17 08:13 Hct 33.2 % (34.0-47.0) L 12/12/17 08:13 MCV 93.9 fL (81.0-99.0) 12/12/17 08:13 MCH 32.0 pg (27.0-31.0) H 12/12/17 08:13 MCHC 34.0 g/dL (33.0-37.0) 12/12/17 08:13 RDW 14.9 % (11.5-14.5) H 12/12/17 08:13 Plt Count 254 K/uL (130-400) 12/12/17 08:13 MPV 9.0 fL (7.2-11.7) 12/12/17 08:13 Neut % (Auto) 57.1 % (50.0-75.0) 12/12/17 08:13 Lymph % (Auto) 29.1 % (20.0-40.0) 12/12/17 08:13 [place] % (Auto) 10.8 % (0.0-10.0) H 12/12/17 08:13 Eos % (Auto) 2.5 % (0.0-4.0) 12/12/17 08:13 Baso % (Auto) 0.5 % (0.0-2.0) 12/12/17 08:13 Neut # (Auto) 4.1 K/uL (1.8-7.0) 12/12/17 08:13 Lymph # (Auto) 2.1 K/uL (1.0-4.3) 12/12/17 08:13 [place] # (Auto) 0.8 K/uL (0.0-0.8) 12/12/17 08:13 Eos # (Auto) 0.2 K/uL (0.0-0.7) 12/12/17 08:13 Baso # (Auto) 0.0 K/uL (0.0-0.2) 12/12/17 08:13 PT 11.8 SECONDS (9.7-12.2) 12/11/17 20:00 INR 1.1 12/11/17 20:00 APTT 33 SECONDS (21-34) 12/11/17 20:00 Sodium 139 mmol/L (132-148) 12/12/17 08:13 Potassium 3.3 mmol/L (3.6-5.2) L 12/12/17 08:13 Chloride 106 mmol/L (98-107) 12/12/17 08:13 Carbon Dioxide 26 mmol/L (22-30) 12/12/17 08:13 Anion Gap 12 (10-20) 12/12/17 08:13 BUN 8 mg/dL (7-17) 12/12/17 08:13 Creatinine 0.5 mg/dL (0.7-1.2) L 12/12/17 08:13 Est GFR ( Amer) > 60 12/12/17 08:13 Est GFR (Non-Af Amer) > 60 12/12/17 08:13 Random Glucose 84 mg/dL (65-105) 12/12/17 08:13 Hemoglobin A1c 5.2 % (4.2-6.5) 12/12/17 08:13 Calcium 8.0 mg/dl (8.6-10.4) L 12/12/17 08:13 Phosphorus 3.2 mg/dL (2.5-4.5) 12/12/17 08:13 Magnesium 2.1 mg/dL (1.6-2.3) 12/12/17 08:13 Total Bilirubin 1.0 mg/dL (0.2-1.3) 12/12/17 08:13 AST 22 U/L (14-36) 12/12/17 08:13 ALT 34 U/L (9-52) 12/12/17 08:13 Alkaline Phosphatase 52 U/L (38-126) 12/12/17 08:13 Total Protein 6.4 g/dL (6.3-8.3) 12/12/17 08:13 Albumin 3.7 g/dL (3.5-5.0) 12/12/17 08:13 Globulin 2.7 gm/dL (2.2-3.9) 12/12/17 08:13 Albumin/Globulin Ratio 1.4 (1.0-2.1) 12/12/17 08:13 Triglycerides 84 mg/dL (0-149) D 12/12/17 08:13 Cholesterol 217 mg/dL (0-199) H 12/12/17 08:13 LDL Cholesterol Direct 139 mg/dL (0-129) H 12/12/17 08:13 HDL Cholesterol 60 mg/dL (30-70) 12/12/17 08:13 Lipase 175 U/L (23-300) 12/11/17 12:05 25-OH Vitamin D Total 24.1 NG/ML (30.0-100.0) L 12/12/17 08:13 Urine Color Yellow (YELLOW) 12/11/17 12:05 Urine Clarity Clear (Clear) 12/11/17 12:05 Urine pH 8.0 (5.0-8.0) 12/11/17 12:05 Ur Specific [place] 1.010 (1.003-1.030) 12/11/17 12:05 Urine Protein Negative mg/dL (NEGATIVE) 12/11/17 12:05 Urine Glucose (UA) Normal mg/dL (Normal) 12/11/17 12:05 Urine Ketones Negative mg/dL (NEGATIVE) 12/11/17 12:05 Urine Blood Negative (NEGATIVE) 12/11/17 12:05 Urine Nitrate Negative (NEGATIVE) 12/11/17 12:05 Urine Bilirubin Negative (NEGATIVE) 12/11/17 12:05 Urine Urobilinogen Normal mg/dL (0.2-1.0) 12/11/17 12:05 Ur Leukocyte Esterase Neg Tavares/uL (Negative) 12/11/17 12:05 Urine WBC (Auto) < 1 /hpf (0-5) 12/11/17 12:05 Urine RBC (Auto) < 1 /hpf (0-3) 12/11/17 12:05 Ur Squamous Epith Cells 7 /hpf (0-5) H 12/11/17 12:05 Hepatitis A IgM Ab Negative (NEGATIVE) 12/12/17 08:13 Hep Bs Antigen Negative (NEGATIVE) 12/12/17 08:13 Hep B Core IgM Ab Negative (NEGATIVE) 12/12/17 08:13 Hepatitis C Antibody Negative (NEGATIVE) 12/12/17 08:13 Ur L.pneumophila Ag Negative (NEGATIVE) 12/12/17 09:41 - Hospital Course Hospital Course: 77 year old female with past medical history of Asthma, Gastritis, H. Pylori ( 2015), osteoporosis presents to the hospital for abdominal pain. Patient states the pain started about 1 week ago and has been getting progressively worse about 3 days ago. She states yesterday was the worse it has ever been but she was not able to get transportation to come to the hospital. Patient states the pain is located in the right lower quadrant and radiates to the middle of her abdomen. Patient states the pain feels like a burning/sharp pain that is 10/10. She states when she leans forward the pain is worse. Patient states after receiving pain medication in the ER her pain is now a 5-6/10. She states she has felt a bit nauseated due to the pain and has not been able to eat today. She currently denies chest pain, shortness of breath, difficulty breathing, palpitations, vomiting, diarrhea, constipation, fever or chills. CT A/P showed large R bowel (including appendix) containing inguinal hernia without obstruction and large L bowel containing hernia without obstruction. CXR showed mild pulmonary venous congestion, mild upper lobe atelectasis, right hilar prominence, emphysematous changes. Surgery was consulted but decided against surgery at this time as it was reducible. Patient's breathing improved with antibiotics and Duonebs ATC. Primary Diagnosis: chronic bronchitis, bilateral inguinal hernia Patient is clear for discharge per Dr. Villarreal. Patient is to restart taking all of her home medications. We are adding the following medications that she should take as prescribed: Ventolin 1 puff every 6 hours Flovent 1 puff every 12 hours Simvastatin 10 mg by mouth at bedtime Omeprazole 20 mg by mouth twice a day Oscal 1 tab by mouth once a day Patient needs to follow up with the [facility] downstairs to establish PMD care and refill medications. She should also follow up at Dr. Whitman's office to schedule for surgery to repair bilateral inguinal hernia, if she chooses to do so electively. If symptoms worsen or return, please do not hesitate coming back to the ED. Plan was discussed with the patient and daughter who understood and agreed. This is the summary of the hospital course. For more details, please refer to the EMR. - Date & Time of H&P Date of H&P: 12/12/17 Time of H&P: 15:30 Discharge Exam - Head Exam Head Exam: ATRAUMATIC, NORMAL INSPECTION, NORMOCEPHALIC - Eye Exam Eye Exam: EOMI, Normal appearance Pupil Exam: NORMAL ACCOMODATION - ENT Exam ENT Exam: Mucous Membranes Dry Additional comments: poor dentition - Respiratory Exam Respiratory Exam: Wheezes. absent: Accessory Muscle Use, Rales, Rhonchi Additional comments: diffuse wheezes, no rales - Cardiovascular Exam Cardiovascular Exam: REGULAR RHYTHM, +S1, +S2. absent: Diastolic murmur, Systolic Murmur - GI/Abdominal Exam GI & Abdominal Exam: Normal Bowel Sounds, Soft, Tenderness Additional comments: palpation in any quadrant is radiates to RLQ - Extremities Exam Extremities exam: normal capillary refill, pedal edema, pedal pulses present - Neurological Exam Neurological exam: Alert, CN II-XII Intact, Oriented x3, Reflexes Normal - Psychiatric Exam Psychiatric exam: Normal Affect, Normal Mood - Skin Skin Exam: Dry, Intact, Normal Color Discharge Plan - Discharge Medications Prescriptions: Albuterol HFA [Ventolin HFA 90 mcg/actuation (8 g)] 1 puff IH [id number] #120 puff Calcium Carbonate/Vitamin D [Oyster Shell Calcium/Vitamin D 250 MG-125 Iu] 1 tab PO DAILY #30 tab Fluticasone Propionate [Flovent Hfa] 0.11 mg IH Q12 #50 ml Omeprazole 20 mg PO BID #60 cap Simvastatin 10 mg PO HS #30 tablet - Follow Up Plan Condition: GOOD Disposition: HOME/ ROUTINE Instructions: Abdominal Hernia (DC), Acute Abdominal Pain (DC) Additional Instructions: Patient is clear for discharge per Dr. Villarreal. Patient is to restart taking all of her home medications. We are adding the following medications that she should take as prescribed: Ventolin 1 puff every 6 hours Flovent 1 puff every 12 hours Simvastatin 10 mg by mouth at bedtime Omeprazole 20 mg by mouth twice a day Oscal 1 tab by mouth once a day [facility] to establish [facility]D care and refill medications. She should also follow up at Dr. Whitman's office to schedule for surgery to repair bilateral inguinal hernia, if she chooses to do so electively. If symptoms worsen or return, please do not hesitate coming back to the ED. Plan was discussed with the patient and daughter who understood and agreed. El paciente est adarsh de bobby por Dr. Villarreal. El paciente debe reiniciar tomando todos arnaldo medicamentos domsticos. Estamos agregando los siguientes medicamentos que debe nerissa segn lo recetado: Ventolin 1 puff cada 6 horas Flovent 1 soplo cada 12 horas Simvastatina 10 mg por va oral antes de acostarse Omeprazol 20 mg por va oral dos veces al da Oscal 1 pestaa por la boca jamie vez al da El paciente necesita hacer un seguimiento con la [place] en la planta [place] para establecer el cuidado del PMD y rellenar los medicamentos. Tambin debe hacer un seguimiento en la oficina del Dr. Whitman para programar jamie ciruga para reparar la hernia inguinal bilateral, si decide hacerlo de forma electiva. Si los sntomas empeoran o vuelven, no dude en volver al ED. El plan se discuti con el paciente y la hija que entendieron y estuvieron de acuerdo. Referrals: Jose Whitman MD [Staff Provider] - Sunshine Kuo MD [Staff Provider] - <Esther Villarreal V - Last Filed: 12/15/17 14:02> Provider - Provider Date of Admission: 12/11/17 15:45 Attending physician: Arturo Guzman MD Hospital Course - Lab Results Lab Results: Micro Results 12/11/17 12:05 Urine Urine Culture - Final No Growth (<1,000 CFU/ML) Most Recent Lab Values WBC 7.2 K/uL (4.8-10.8) 12/12/17 08:13 RBC 3.53 Mil/uL (3.80-5.20) L 12/12/17 08:13 Hgb 11.3 g/dL (11.0-16.0) 12/12/17 08:13 Hct 33.2 % (34.0-47.0) L 12/12/17 08:13 MCV 93.9 fL (81.0-99.0) 12/12/17 08:13 MCH 32.0 pg (27.0-31.0) H 12/12/17 08:13 MCHC 34.0 g/dL (33.0-37.0) 12/12/17 08:13 RDW 14.9 % (11.5-14.5) H 12/12/17 08:13 Plt Count 254 K/uL (130-400) 12/12/17 08:13 MPV 9.0 fL (7.2-11.7) 12/12/17 08:13 Neut % (Auto) 57.1 % (50.0-75.0) 12/12/17 08:13 Lymph % (Auto) 29.1 % (20.0-40.0) 12/12/17 08:13 [place] % (Auto) 10.8 % (0.0-10.0) H 12/12/17 08:13 Eos % (Auto) 2.5 % (0.0-4.0) 12/12/17 08:13 Baso % (Auto) 0.5 % (0.0-2.0) 12/12/17 08:13 Neut # (Auto) 4.1 K/uL (1.8-7.0) 12/12/17 08:13 Lymph # (Auto) 2.1 K/uL (1.0-4.3) 12/12/17 08:13 [place] # (Auto) 0.8 K/uL (0.0-0.8) 12/12/17 08:13 Eos # (Auto) 0.2 K/uL (0.0-0.7) 12/12/17 08:13 Baso # (Auto) 0.0 K/uL (0.0-0.2) 12/12/17 08:13 PT 11.8 SECONDS (9.7-12.2) 12/11/17 20:00 INR 1.1 12/11/17 20:00 APTT 33 SECONDS (21-34) 12/11/17 20:00 Sodium 139 mmol/L (132-148) 12/12/17 08:13 Potassium 3.3 mmol/L (3.6-5.2) L 12/12/17 08:13 Chloride 106 mmol/L (98-107) 12/12/17 08:13 Carbon Dioxide 26 mmol/L (22-30) 12/12/17 08:13 Anion Gap 12 (10-20) 12/12/17 08:13 BUN 8 mg/dL (7-17) 12/12/17 08:13 Creatinine 0.5 mg/dL (0.7-1.2) L 12/12/17 08:13 Est GFR ( Amer) > 60 12/12/17 08:13 Est GFR (Non-Af Amer) > 60 12/12/17 08:13 Random Glucose 84 mg/dL (65-105) 12/12/17 08:13 Hemoglobin A1c 5.2 % (4.2-6.5) 12/12/17 08:13 Calcium 8.0 mg/dl (8.6-10.4) L 12/12/17 08:13 Phosphorus 3.2 mg/dL (2.5-4.5) 12/12/17 08:13 Magnesium 2.1 mg/dL (1.6-2.3) 12/12/17 08:13 Total Bilirubin 1.0 mg/dL (0.2-1.3) 12/12/17 08:13 AST 22 U/L (14-36) 12/12/17 08:13 ALT 34 U/L (9-52) 12/12/17 08:13 Alkaline Phosphatase 52 U/L (38-126) 12/12/17 08:13 Total Protein 6.4 g/dL (6.3-8.3) 12/12/17 08:13 Albumin 3.7 g/dL (3.5-5.0) 12/12/17 08:13 Globulin 2.7 gm/dL (2.2-3.9) 12/12/17 08:13 Albumin/Globulin Ratio 1.4 (1.0-2.1) 12/12/17 08:13 Triglycerides 84 mg/dL (0-149) D 12/12/17 08:13 Cholesterol 217 mg/dL (0-199) H 12/12/17 08:13 LDL Cholesterol Direct 139 mg/dL (0-129) H 12/12/17 08:13 HDL Cholesterol 60 mg/dL (30-70) 12/12/17 08:13 Lipase 175 U/L (23-300) 12/11/17 12:05 25-OH Vitamin D Total 24.1 NG/ML (30.0-100.0) L 12/12/17 08:13 Urine Color Yellow (YELLOW) 12/11/17 12:05 Urine Clarity Clear (Clear) 12/11/17 12:05 Urine pH 8.0 (5.0-8.0) 12/11/17 12:05 Ur Specific [place] 1.010 (1.003-1.030) 12/11/17 12:05 Urine Protein Negative mg/dL (NEGATIVE) 12/11/17 12:05 Urine Glucose (UA) Normal mg/dL (Normal) 12/11/17 12:05 Urine Ketones Negative mg/dL (NEGATIVE) 12/11/17 12:05 Urine Blood Negative (NEGATIVE) 12/11/17 12:05 Urine Nitrate Negative (NEGATIVE) 12/11/17 12:05 Urine Bilirubin Negative (NEGATIVE) 12/11/17 12:05 Urine Urobilinogen Normal mg/dL (0.2-1.0) 12/11/17 12:05 Ur Leukocyte Esterase Neg Tavares/uL (Negative) 12/11/17 12:05 Urine WBC (Auto) < 1 /hpf (0-5) 12/11/17 12:05 Urine RBC (Auto) < 1 /hpf (0-3) 12/11/17 12:05 Ur Squamous Epith Cells 7 /hpf (0-5) H 12/11/17 12:05 Hepatitis A IgM Ab Negative (NEGATIVE) 12/12/17 08:13 Hep Bs Antigen Negative (NEGATIVE) 12/12/17 08:13 Hep B Core IgM Ab Negative (NEGATIVE) 12/12/17 08:13 Hepatitis C Antibody Negative (NEGATIVE) 12/12/17 08:13 Ur L.pneumophila Ag Negative (NEGATIVE) 12/12/17 09:41 Ur Strep pneumoniae Ag Not detected (Not Detected) 12/12/17 09:35 Attending/Attestation - Attestation I have personally seen and examined this patient.: Yes I have fully participated in the care of the patient.: Yes I have reviewed all pertinent clinical information, including history, physical exam and plan: Yes Notes (Text): This is a late computer entry for 12/12/2017 Patient seen, examined, case discussed with registered medical transcriptionist. Patient's diet advanced by surgery. There is no acute surgical intervention given that the hernia is reducible patient is pain control patient is seen observing eating food including mac & cheese and broccoli. Patient's lung exam has also improved nebulizer treatment. Patient likely has chronic bronchitis from emphysema. Patient is medically stable for discharge. 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 Patient also need to follow-up with Dr. Whitman upon hospitalization to observe hernia for future surgical intervention if needed. We are adding the following medications that she should take as prescribed: Ventolin 1 puff every 6 hours as needed for shortness of breath Flovent 1 puff every 12 hours daily Simvastatin 10 mg by mouth at bedtime for lipid disorder Omeprazole 20 mg by mouth twice a day for gastritis Oscal 1 tab by mouth once a day osteoporosis Patient needs to follow up with the [facility] downstairs to establish PMD care and refill medications. She should also follow up at Dr. Whitman's office to schedule for surgery to repair bilateral inguinal hernia, if she chooses to do so electively. If symptoms worsen or return, please do not hesitate coming back to the ED. Plan was discussed with the patient and daughter who understood and agreed. This is the summary of the hospital course. For more details, please refer to the EMR. Discharge diagnosis: 1) inguinal hernia * No acute surgical intervention needed since it reducible to follow-up outpatient with surgeon. * Pain control 2) bronchitis * X-ray noting for emphysematous changes and atelectasis. Patient had given upon discharge both a nebulizer and Flovent for relief patient is not a smoker
[2017-12-12 16:35] VITALS: BP 118/65; PULSE 86; TEMP 98.2; O2SAT 90
[2017-12-12] MEDS ORDERED: Pneumococcal 23-Valent Vaccine IM ONE ×2 (17:15→18:00)
[2017-12-13] MEDS ORDERED: Pneumococcal 23-Valent Vaccine IM ONE (10:00)
--- NOTE | 2017-12-13 22:49 | CARD ---
APPROVED REPORT Date of service: 12/11/2017 EKG Measurement Heart [id number] <Conclusion> Normal sinus rhythm Normal ECG
== END 2017-12-12 18:59 | disposition home or self-care (01) | DRG 394 ==
LOC: C.ER 10:59 → C.9E 15:45 → C.3T 18:12
PROVIDERS: ADMIT Internal Medicine; ATTEND Internal Medicine
DX: K40.20 Bilateral inguinal hernia, without obstruction or gangrene, not specified as recurrent (principal); J98.11 Atelectasis; E78.00 Pure hypercholesterolemia, unspecified; I10 Essential (primary) hypertension; J42 Unspecified chronic bronchitis; J45.909 Unspecified asthma, uncomplicated; M81.0 Age-related osteoporosis without current pathological fracture; Z91.14 Patient's other noncompliance with medication regimen